=== PATIENT | male | born 1980 | race Caucasian/White ===

== ENCOUNTER 2020-09-12 01:08 | Emergency (ER) | payer SELFPAY ==
[~2020-09-12] VITALS: Ht 182.9 cm; Wt 109.9 kg
[2020-09-12] MEDS ORDERED: CEFTRIAXONE 250 MG ONE (01:41)
[2020-09-12] MEDS ORDERED: AZITHROMYCIN 250 MG TABLET ONE (01:41)
[2020-09-12 01:44] VITALS: BP 129/70
[2020-09-12] MEDS ORDERED: AZITHROMYCIN 500 MG TABLET PO ONE (02:00)
[2020-09-12] MEDS ORDERED: CEFTRIAXONE 250 MG IM ONE (02:00)
--- NOTE | 2020-09-12 02:00 | NUR ---
TASK RN: Medicated per eMAR. Pt agrees with and understands discharge plan and instructions.
== END 2020-09-12 02:18 | disposition home or self-care (01) ==
LOC: ED 02:00
DX: A59.9 Trichomoniasis, unspecified (principal); F10.10 Alcohol abuse, uncomplicated; F15.10 Other stimulant abuse, uncomplicated; F12.10 Cannabis abuse, uncomplicated; F14.10 Cocaine abuse, uncomplicated; F17.210 Nicotine dependence, cigarettes, uncomplicated; Z72.9 Problem related to lifestyle, unspecified; Y90.0 Blood alcohol level of less than 20 mg/100 ml
CPT/HCPCS: 96372; 99283; 99406; J0696; 96365